=== PATIENT | female | born 2005 | race Caucasian/White ===

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

== ENCOUNTER 2025-02-27 22:37 | Emergency (ER) | payer BC ==
[~2025-02-27] VITALS: Ht 157.5 cm; Wt 56.1 kg
[~2025-02-27 22:37] MED LIST changes: +ONDA-243 PO; -ONDA4TAB12 PO
[2025-02-27 22:39] VITALS: TEMP 97.2
--- NOTE | 2025-02-27 22:49 | Physician Documentation ---
History of Present Illness ~ Chief Complaint: Abdominal Pain Stated Complaint: ABD PAIN Time Seen by MD: 00:01 Primary Medical Doctor: [facility]- [facility] This is a 19-year-old female who presents with left lower quadrant abdominal pain and diarrhea onset earlier today, patient reports no blood in her stools. History as above. Patient endorses family history of kidney stones in her father. Symptoms were of sudden onset this evening. She denies any dysuria. Pain comes in waves. Took some Tylenol earlier for the pain and some ibuprofen just prior to coming to the ER Medication Reconciliation Allergies: Coded Allergies: No Known Allergies (Unverified , 02/27/25) Scheduled Ethinyl Estradiol/Drospirenone (Drospirenone-Ee 3-0.02 mg Tab), 1 TABLET PO DAILY, (Reported) Gabapentin (Neurontin), 1 CAP PO Q8H ONDANSETRON ODT 4mg tablet (Ondansetron Odt), 1 TABLET PO Q6H Ondansetron Hcl (Zofran), 1 TAB PO Q8H Sertraline HCl (Sertraline HCl), 1 TAB PO DAILY, (Reported) Past Medical History Past Medical History: No Pertinent History, Anxiety, Depression Past Surgical History: no surgical history Alcohol Use: Occasionally Drug Use: marijuana Lives with: Family Lives In: Home Occupation: student, child Review of Systems ROS As stated above in the HPI, otherwise all systems are reviewed and negative. Physical Exam Vital Signs: Temperature: 97.2, Source: Oral, Heart Rate: 105, Respiratory Rate: 16, Pulse Oximetry: 99, Weight: 56.100 Physical Exam General: Patient is awake, alert, oriented x4 in no acute distress Head: Normocephalic and atraumatic. Eyes: Conjunctival normal. EOMI. PERRL. ENT: Mucous membranes moist. Neck: Supple, trachea is midline. Chest: Clear to auscultation bilaterally without rales, rhonchi, or wheezes. There is no accessory muscle use or retractions. Cardiac: RRR without murmurs, gallops, or rubs. Abd: Soft, nondistended, nontender, with normoactive bowel sounds. No guarding, rebound, or rigidity. Back: Mild left-sided flank tenderness to palpation Progress Results/Orders Results/Orders Orders - WILFRID ZAMORA MD Cult Urine + [place] Ct (02/27/25 23:48) Ct Abdomen Pelvis (02/28/25 00:10) Completed Orders - WILFRID ZAMORA MD Hcg, Ur Ql (02/27/25 22:57) Cbc/Diff (02/27/25 22:57) BMP (02/27/25 22:57) Lipase (02/27/25 22:57) CMP (02/27/25 22:57) Ua W/Microscopic, Cult If Ind (02/27/25 23:04) Hydrocodone/Apap 5/325mg Tab ([place] 5/32 (02/28/25 00:10) Ondansetron Disint. Tablet (Zofran Odt T (02/28/25 00:10) Ct Abdomen Pelvis (02/28/25 00:10) Medications Received in ER Medications (Trade) Dose Ordered Sig/Eva Route PRN Reason Start Time Stop Time Status Last Admin Dose Admin ([place] 5/325mg tablet) 1 tab ONCE ONCE PO 02/28/25 00:10 02/28/25 00:11 DC 02/28/25 00:32 1 TAB (Zofran ODT tablet) 4 mg ONCE ONCE PO 02/28/25 00:10 02/28/25 00:11 DC 02/28/25 00:31 4 MG Vital Signs 02/27/25 02/27/25 02/28/25 02/28/25 22:39 23:30 00:05 00:32 Temp 97.2 Pulse 105 102 Resp 16 12 12 16 B/P (MAP) 118/82 (94) Pulse Ox 99 99 Laboratory Tests Test 02/27/25 23:04 02/27/25 23:06 Urine Specimen Description Non-specified Urine Color Yellow Urine Clarity Cloudy Urine pH 6.0 Urine Specific [place] >=1.030 Urine Protein 100 H Urine Glucose (UA) Negative Urine Ketones Trace H Urine Occult Blood Large H Urine Nitrite Negative Urine Bilirubin Small Urine Urobilinogen 0.2 Urine Leukocyte Esterase Negative Urine RBC 50-100 Urine WBC 0-4 Urine WBC Clumps Few Urine Squamous Epithelial Cells Few Urine Bacteria 4+ Urine Culture Indicated Indicated Volume Urine Centrifuged 10 ml Urine HCG, Qualitative Negative Urine Comment White Blood Count 9.2 Red Blood Count 4.38 Hemoglobin 13.5 Hematocrit 38.4 Mean Corpuscular Volume 87.6 Mean Corpuscular Hemoglobin 30.7 Mean Corpuscular Hemoglobin Concent 35.1 Red Cell Distribution Width 13.1 Platelet Count 415 Mean Platelet Volume 8.3 Neutrophils (%) (Auto) 66.8 Lymphocytes (%) (Auto) 25.2 Monocytes (%) (Auto) 6.1 Eosinophils (%) (Auto) 1.2 Basophils (%) (Auto) 0.7 Neutrophils # (Auto) 6.2 Lymphocytes # (Auto) 2.3 Monocytes # (Auto) 0.6 Eosinophils # (Auto) 0.1 Basophils # (Auto) 0.1 CBC Comment Sodium Level 143 Potassium Level 3.6 Chloride Level 106 Carbon Dioxide Level 28.3 Anion Gap 9 Blood Urea Nitrogen 11 Creatinine 0.87 Estimated GFR/1.73 m2 82 BUN/Creatinine Ratio 12.6 Glucose Level 126 H Calcium Level 9.3 Total Bilirubin 0.3 Aspartate Amino Transf (AST/SGOT) 42 H Alanine Aminotransferase (ALT/SGPT) 50 Alkaline Phosphatase 65 Total Protein 8.0 Albumin 3.8 Globulin 4.2 Albumin/Globulin Ratio 0.9 L Lipase 43 Chemistry Comments Microbiology Date/Time Source Procedure Growth Status 02/27/25 23:48 Urine Nonspecified Urine Culture - Preliminary Culture received. Resulted Medical Decision Making Findings Patient presents to the emergency room for evaluation of flank pain. Differentials include but are not limited to pyelonephritis kidney stone musculoskeletal pain diverticulitis constipation referred pain therefore emergent labs and imaging indicated. Labs show significant hematuria and patient is not menstruating that has concern for possible kidney stone with no history of kidney stone therefore CT scan performed which confirmed kidney stone. No evidence of acute kidney injury. Patient's pain is controlled. Patient's urine that has concerning for possible urinary tract infection but that has no evidence of sepsis therefore antibiotics initiated and strong ER precautions regarding signs of sepsis discussed. Departure Disposition: HOME / SELF CARE / HOMELESS Impression: Primary Impression: Kidney stone Additional Impression: Acute urinary tract infection Condition: Stable Discharge Instructions: Kidney Stones, Urinary Tract Infection, Adult Referrals: NO PRIMARY CARE PROVIDER (PCP) Prescriptions Ondansetron 8mg ODT (Ondansetron Odt) 8 Mg Tab.rapdis 1 TAB PO Q6H for nausea/vomiting for 3 Days, #12 TAB 0 Refills Prov: WILFRID ZAMORA MD 02/28/25 Hydrocodone Bit/Acetaminophen 5/325 MG ([place] 5/325 MG) 5 Mg/325 Mg Tablet 1-2 TAB PO Q4-6 hours PRN for pain, #10 TAB Prov: WILFRID ZAMORA MD 02/28/25 Tamsulosin Hcl* (Flomax*) 0.4 Mg Cap.sr.24h 1 CAP PO DAILY, #10 CAP Prov: WILFRID ZAMORA MD 02/28/25 Cephalexin*Monohydrate* (Keflex*) 500 Mg Capsule 1 CAP PO Q12H for 10 Days, #20 CAP Prov: WILFRID ZAMORA MD 02/28/25 Education Educated: Patient Educated regarding: diagnosis, treatment, need for follow up Signature Scribe Signature: No scribe Attestation: The note accurately reflects work and decisions made by me.Wilfrid Zamora MD 02/28/25 01:00 ARIAS GILL Feb 27, 2025 22:49 WILFRID ZAMORA MD Feb 28, 2025 00:12
[2025-02-27 23:14] LABS: MEAN PLATELET VOLUME 8.3 FL (7.4-10.4); RED CELL DISTRIBUTION WIDTH 13.1 % (11.5-14.5)
[2025-02-27 23:18] LABS: URINE HCG NEGATIVE (NEG)
[2025-02-27 23:27] LABS: CREATININE 0.87 MG/DL (0.40-0.90); TOTAL CARBON DIOXIDE 28.3 MMOL/L (24-32); eCRCL 81 ML/MIN; eGFR 82 ML/MIN
[2025-02-27 23:40] LABS: LEUKOCYTE ESTERASE ,URINE NEGATIVE (Neg); NITRITES, URINE NEGATIVE (Neg); OCCULT BLOOD,URINE LARGE (Neg); UA COLLECTION TYPE NON-SPECIFIED
[2025-02-27 23:48] LABS: SQUAMOUS EPITHELIAL CELL,UR FEW /LPF (FEW); WBC CLUMPS,URINE FEW /HPF (NEGATIVE)
[2025-02-28 00:05] VITALS: BP 118/82; PULSE 102; O2SAT 99
[2025-02-28] MEDS: ondansetron 4mg rapidly disintigrating tab PO ONE (00:31)
[2025-02-28] MEDS: HYDROcodone/acetaminophen 5mg/325mg tablet PO ONE (00:32)
--- NOTE | 2025-02-28 00:42 | RADIOLOGY REPORT ---
Exam: CT CT ABDOMEN PELVIS History: left flank pain Comparison Study: None TECHNIQUE: Multidetector CT of the abdomen and pelvis was performed from lung bases to pubic symphysis. Imaging was performed without IV contrast. Axial, coronal, and sagittal multiplanar reformats were obtained from the axial data set by the technologist. RADIATION DOSE: CTDI vol 8.47 mGy. DLP 398.31 mGy.cm Findings: Limited evaluation of the solid organs in the absence of IV contrast. Lungs: The lung bases are clear. Liver: Unremarkable. Spleen: Unremarkable. Pancreas: Unremarkable. Gallbladder: Unremarkable. Adrenals: Unremarkable Kidneys: 3 mm calculus situated within the distal left ureter with mild upstream hydroureter and moderate upstream hydronephrosis. Pelvic Viscera: Unremarkable. Vasculature: Unremarkable. Retroperitoneum: Unremarkable. Bowel: No bowel obstruction. Musculoskeletal: Unremarkable. Soft tissues: Unremarkable Impression: 1. 3 mm calculus situated within the distal left ureter with mild upstream hydroureter and moderate upstream hydronephrosis.
[2025-02-28] MEDS ORDERED: ONDA-245 PO (01:00)
[2025-02-28] MEDS ORDERED: HYDR-3965 PO (01:00)
[2025-02-28] MEDS ORDERED: TAMS-55 PO (01:00)
[2025-02-28] MEDS ORDERED: CEPH-585 PO (01:00)
[2025-02-28 01:35] VITALS: RESP 12
[2025-02-28] MEDS: ketorolac trometh 15mg/ml vial 15 MG/ML ML IM ONE (01:35)
[2025-02-28] MEDS: CefTRIAXone 1000mg IM Kit (w/lidocaine diluent) IM ONE (01:35)
== END 2025-02-28 01:55 | disposition home or self-care (01) ==
LOC: ER 22:37
DX: N20.0 Calculus of kidney (principal); N39.0 Urinary tract infection, site not specified; F41.9 Anxiety disorder, unspecified; F32.A Depression, unspecified; F12.90 Cannabis use, unspecified, uncomplicated; Z72.89 Other problems related to lifestyle; Z79.899 Other long term (current) drug therapy
CPT/HCPCS: 36415; 74176; 80053; 81001; 81025; 83690; 85025; 87088; 96372; 99285; J0696; J1885